=== PATIENT | female | born 1970 | race Caucasian/White ===

== ENCOUNTER 2016-07-29 21:19 | Emergency (ER) | payer OTHER ==
[~2016-07-29] VITALS: Ht 157.5 cm; Wt 78.7 kg
[~2016-07-29 21:19] MED LIST: AMBIEN10 MG PO; ASPIR-LOW81 MG PO; BACTRIM,SEPT1 TABLET PO; CALCIUM 500 MG1 EACH PO; CHILDREN'S ASPI81 M1 PO; DEXAMETHASONE4 MG PO; EFFEXOR XR37.5 MG PO; EMEND80 MG PO; HYDROCHLOROTH12.5 M3 PO; HYDROMORPHONE HC4 MG PO; K-DUR20 MEQ PO; LEVETIRACETAM500 MG PO; LEVOFLOXACIN750 MG PO; LORAZEPAM0.5 MG PO; LUNESTA2 MG PO; MAGNESIUM OXID200 MG PO; MICRO-K10 ME2 PO; MOTRIN600 MG PO; NOHOMEMEDS; PREDNISONE20 MG PO; PROCHLORPERAZIN10 MG PO; PROMETHAZINE HC25 M1 PO; PROVENTIL HFA6.7 GM IH; PYRIDIUM100 MG PO; TAMOXIFEN CITRA10 MG PO; TESSALON200 MG PO; TRAMADOL HCL50 MG PO; TRAZODONE HCL50 MG PO; VENTOLIN HFA18 GM; VENTOLIN HFA18 GM IH; VITAMIN D250000 UNIT PO; XANAX0.25 MG PO; ZOFRAN4 MG PO
[2016-07-29 22:55] LABS: HEMATOCRIT 36.7 % (36.0-46.0); MCH 29.4 PG (29.0-34.0); MCHC 34.1 G/DL (30.0-36.0); MCV 86.4 FL (83-99); MEAN PLAT.VOLUME 10.2 uM^3 (9.5-12.4); PLATELET COUNT 307 K/uL (156-360); RBC DIS.WIDTH-CV 12.8 % (11.8-14.6); RBC DIS.WIDTH-SD 40.4 % (39-53); RED BLOOD COUNT 4.25 M/uL (3.80-5.20); WHITE BLOOD COUNT 7.1 K/uL (4.1-10.2)
[2016-07-29 23:04] LABS: CHLORIDE 100 mEq/L (99-109); POTASSIUM 2.7 mEq/L (3.7-5.4); SODIUM 141 mEq/L (136-147)
[2016-07-29 23:06] LABS: GLUCOSE 82 mg/dL (70-99)
[2016-07-29 23:07] LABS: ANION GAP 10 MEQ/L (2-14)
[2016-07-29 23:23] LABS: GFR ESTIMATE (CALCULATED) > 59 mL/min/
[2016-07-30] MEDS ORDERED: NORCO 5/3251 TABLET PO (01:53)
[2016-07-30 02:01] VITALS: BP 154/112
[2016-07-30 02:22] LABS: UREA NITROGEN (BUN) 13 mg/dL (9-23)
== END 2016-07-30 02:02 | disposition home or self-care (01) ==
LOC: RME 21:19 → EME 21:19 → RME 07-30 02:02
PROVIDERS: Physician Assistant
DX: R07.89 Other chest pain (principal); J45.909 Unspecified asthma, uncomplicated; Z85.3 Personal history of malignant neoplasm of breast; Z90.11 Acquired absence of right breast and nipple; Z85.41 Personal history of malignant neoplasm of cervix uteri; Z88.0 Allergy status to penicillin
CPT/HCPCS: 71020; 71250; 80048; 85027; 85379; 99281; 99283; J2270

== ENCOUNTER 2016-11-15 20:57 | Emergency (ER) | payer OTHER ==
[~2016-11-15] VITALS: Ht 160 cm; Wt 80.5 kg
[~2016-11-15 20:57] MED LIST changes: +NORCO 5/3251 TABLET PO
[2016-11-15] MEDS ORDERED: TESSALON PERLE100 MG PO (22:38)
[2016-11-15 23:14] VITALS: BP 156/96
== END 2016-11-15 23:15 | disposition home or self-care (01) ==
LOC: EME 20:57 → EXP 20:57
DX: T65.891A Toxic effect of other specified substances, accidental (unintentional), initial encounter (principal); J68.0 Bronchitis and pneumonitis due to chemicals, gases, fumes and vapors; Y92.239 Unspecified place in hospital as the place of occurrence of the external cause; Y99.0 Civilian activity done for income or pay; R56.9 Unspecified convulsions; Z85.41 Personal history of malignant neoplasm of cervix uteri; Z88.0 Allergy status to penicillin
CPT/HCPCS: 71020; 93005; 94640; 99281; 99284; J1100